=== PATIENT | female | born 1960 ===

== ENCOUNTER 2017-02-16 16:00 | Emergency (ER) | payer MEDICARE ==
[2017-02-16 16:13] VITALS: BP 103/63; PULSE 83; RESP 16; TEMP 98.7; O2SAT 100
--- NOTE | 2017-02-16 17:32 | CT ---
PROCEDURE: CT HEAD WITHOUT CONTRAST. HISTORY: Left sided Headace, acute sinusitis COMPARISON: Comparison is made to the previous study dated 02/15/2015 TECHNIQUE: Axial computed tomography images were obtained through the head/brain without intravenous contrast. Radiation dose: Total exam DLP = 822.46 mGy-cm. This CT exam was performed using one or more of the following dose reduction techniques: Automated exposure control, adjustment of the mA and/or kV according to patient size, and/or use of iterative reconstruction technique. FINDINGS: HEMORRHAGE: No intracranial hemorrhage. BRAIN: No mass effect or edema. No atrophy or chronic microvascular ischemic changes. VENTRICLES: Unremarkable. No hydrocephalus. CALVARIUM: Unremarkable. PARANASAL SINUSES: Partial opacification of the left frontal sinus. Almost complete opacification of the left ethmoid sinuses and mild mucosal thickening of the left maxillary sinus. MASTOID AIR CELLS: Unremarkable as visualized. No inflammatory changes. OTHER FINDINGS: None. IMPRESSION: Partial opacification of the left frontal sinus and almost complete opacification of the left ethmoid sinus suggestive of sinusitis. No evidence of acute intracranial hemorrhage intracranial collection mass effect or midline shift.
--- NOTE | 2017-02-16 17:56 | ED PDOC ---
HPI: Headache Chief Complaint (Provider): Headache History Per: Patient History/Exam Limitations: no limitations Onset/Duration Of Symptoms: Waxing/Waning, Other (2 weeks) Current Symptoms Are (Timing): Still Present Severity: Severe Front/Back Head: 1 - Left frontal area Quality: Dull Additional Complaint(s): Pt. with hx of CKD on Hemodialysis MWF vial left arm fistula presents to emergency room after dialysis was completed today at 2 p.m. Pt. here today complaining of headache. Headache started 2 weeks ago. It is localized to left frontal area described as pressure like. Pt. has tried benadryl, tylenol, and Nasonex without any relief. Associated symptoms include itchy watery eyes greater on the left than right and nasal congestion greater on the left than right. Pt. denies any nasal discharge, fever, chills, trauma, fall or injury. Pt. states this is not the worst headache of her life. Pt. also denies photophobia, neck stiffness, weakness, or changes in visual acuity. On ROS, pt. denies any weakness, chest pain, dyspnea, abdominal pain, joint pain, nausea, vomiting, or diarrhea. <Rafael Ni - Last Filed: 02/16/17 18:18> <Wilver Cummings - Last Filed: 02/16/17 19:14> Time Seen by Provider: 02/16/17 16:19 Chief Complaint (Nursing): Headache Supervising Attending Note - Supervising Attending Note The Documented history was done by the: Physician Replacer, Attending Physician The documented physical exam was done by the: Physician Replacer, Attending Physician The documented procedures were done by the: Physician Replacer, Attending Physician - Attestation: I have personally seen and examined this patient.: Yes I have fully participated in the care of the patient.: Yes I have reviewed all pertinent clinical information: Yes <Wilver Cummings - Last Filed: 02/16/17 19:14> Past Medical History Vital Signs: Last Vital Signs Temp 98.7 F 02/16/17 16:11 Pulse 83 02/16/17 16:11 Resp 16 02/16/17 16:11 BP 103/63 02/16/17 16:11 Pulse Ox 100 02/16/17 16:11 - Medical History PMH: HTN, Hypothyroidism, End Stage Renal Disease (dialysis M-W-F), Chronic Kidney Disease Denies: HIV, Kidney Stones - Family History Family History: States: Unknown Family Hx - Social History Current smoker - smoking cessation education provided: No Alcohol: None Drugs: Denies <Rafael Ni - Last Filed: 02/16/17 18:18> Vital Signs: Last Vital Signs Temp 98.7 F 02/16/17 16:11 Pulse 83 02/16/17 16:11 Resp 16 02/16/17 16:11 BP 103/63 02/16/17 16:11 Pulse Ox 100 02/16/17 18:18 <Wilver Cummings - Last Filed: 02/16/17 19:14> - Home Medications Home Medications: Ambulatory Orders Medication Instructions Recorded Amoxicillin/Clavulanate Pota 1 tab PO BID 02/14/15 [Augmentin 875 mg-125 mg] Carvedilol [Coreg] 12.5 mg PO BID 02/14/15 Cinacalcet Hydrochloride [Sensipar] 90 mg PO HS 02/14/15 Omeprazole [Omeprazole] 20 mg PO DAILY 02/14/15 Sevelamer Carbonate [Renvela] 2,400 mg PO TID 02/14/15 Sucroferric Oxyhydroxide [Velphoro] 500 mg PO BID 02/14/15 valACYclovir [Valtrex] 500 mg PO MOTHSA 02/14/15 Sevelamer [Renagel] 2,400 mg PO TID #0 tab 02/16/15 Vitamin B Complex/Vit C/Folic 1 tab PO DAILY #0 tab 02/16/15 [Nephro-Jeannine] Amoxicillin/Clavulanate [Augmentin 1 tab PO Q12 #14 tab 02/16/17 875 MG-125 MG] Ibuprofen [Motrin] 400 mg PO Q6 PRN #20 tab 02/16/17 Pseudoephedrine HCl [Sudafed] 30 mg PO Q12 PRN #20 tablet 02/16/17 - Allergies Allergies/Adverse Reactions: Allergies Allergy/AdvReac Type Severity Reaction Status Date / Time iodine Allergy SWELLING Verified 01/08/16 19:59 Review of Systems Neurological: Positive for: Headache (See HPI) <Rafael Ni - Last Filed: 02/16/17 18:18> Physical Exam - Reviewed Vital Signs Reviewed: Yes - Physical Exam Appears: Positive for: Non-toxic, No Acute Distress Head Exam: Positive for: ATRAUMATIC, NORMOCEPHALIC (+ Tenderness palpation of Left frontal sinus) ENT: Positive for: Normal ENT Inspection, Nasal Congestion (+ Left nare turbinat grossly enlarge and obstructing patency of left nare). Negative for: Tonsillar Swelling Neck: Positive for: Painless ROM, Supple Cardiovascular/Chest: Positive for: Regular Rate, Rhythm, Murmur (Systolic Murmur aortic area) Respiratory: Positive for: Normal Breath Sounds. Negative for: Wheezing, Respiratory Distress Pulses-Dorsalis Pedis (L): 2+ Pulses-Dorsalis Pedis (R): 2+ Gastrointestinal/Abdominal: Positive for: Soft. Negative for: Tenderness Extremity: Negative for: Pedal Edema Neurologic/Psych: Positive for: Other (Strength +5/5 bilateral upper extremities ) <Rafael Ni - Last Filed: 02/16/17 18:18> - ECG O2 Sat by Pulse Oximetry: 100 - Progress ED Course And Treament: Motrin 400mg x [address] Head w/o contrast Re-evaluation Time: 17:35 Condition: Improving,but remains with symptoms <Rafael Ni - Last Filed: 02/16/17 18:18> Medical Decision Making Medical Decision Makin y.o. female with sub-acute headache for 2 weeks with history, physica, and CT head consistent with findings of Sinusitis. Pt. to be discharged with augmentin, sudafed, and Ibuprofen. PROCEDURE: CT HEAD WITHOUT CONTRAST. HISTORY: Left sided Headace, acute sinusitis COMPARISON: Comparison is made to the previous study dated 02/15/2015 TECHNIQUE: Axial computed tomography images were obtained through the head/brain without intravenous contrast. Radiation dose: Total exam DLP = 822.46 mGy-cm. This CT exam was performed using one or more of the following dose reduction techniques: Automated exposure control, adjustment of the mA and/or kV according to patient size, and/or use of iterative reconstruction technique. FINDINGS: HEMORRHAGE: No intracranial hemorrhage. BRAIN: No mass effect or edema. No atrophy or chronic microvascular ischemic changes. VENTRICLES: Unremarkable. No hydrocephalus. CALVARIUM: Unremarkable. PARANASAL SINUSES: Partial opacification of the left frontal sinus. Almost complete opacification of the left ethmoid sinuses and mild mucosal thickening of the left maxillary sinus. MASTOID AIR CELLS: Unremarkable as visualized. No inflammatory changes. OTHER FINDINGS: None. IMPRESSION: Partial opacification of the left frontal sinus and almost complete opacification of the left ethmoid sinus suggestive of sinusitis. No evidence of acute intracranial hemorrhage intracranial collection mass effect or midline shift. <Rafael Ni - Last Filed: 02/16/17 18:18> Disposition - Patient ED Disposition Is Patient to be Admitted: No Discussed With : Wilver Cummings - Disposition Disposition: Routine/Home Disposition Time: 18:10 <Rafael Ni - Last Filed: 02/16/17 18:18> <Wilver Cummings - Last Filed: 02/16/17 19:14> - Clinical Impression Clinical Impression: Acute sinusitis, Headache - Disposition Referrals: formerly [facility] [Outside] Condition: FAIR Additional Instructions: Pt. given E.R. precautions to return if symptoms worsen or do not improve. Pt. has an appointment with PMD at [facility] on 02/22/17. Prescriptions: Amoxicillin/Clavulanate [Augmentin 875 MG-125 MG] 1 tab PO Q12 #14 tab Ibuprofen [Motrin] 400 mg PO Q6 PRN #20 tab PRN Reason: Pain, Moderate (4-7) Pseudoephedrine HCl [Sudafed] 30 mg PO Q12 PRN #20 tablet PRN Reason: Cough And Congestion Forms: [employer] ([employer]) Print Language: KINYARWANDA
== END 2017-02-16 19:27 | disposition home or self-care (01) ==
LOC: H.ER 16:00
DX: J01.90 Acute sinusitis, unspecified (principal)

== ENCOUNTER 2018-05-10 14:25 | Emergency (ER) | payer MEDICARE, BC ==
[2018-05-10 14:25] VITALS: BMI 28.3
[2018-05-10 15:09] VITALS: TEMP 97.8
--- NOTE | 2018-05-10 16:48 | CT ---
Date of service: 05/10/2018 PROCEDURE: CT HEAD WITHOUT CONTRAST. HISTORY: Weakness, headache and dizziness. COMPARISON: 02/16/2017. TECHNIQUE: Axial computed tomography images were obtained through the head/brain without intravenous contrast. Coronal and sagittal reconstructed images. Radiation dose: Total exam DLP = 755.22 mGy-cm. This CT exam was performed using one or more of the following dose reduction techniques: Automated exposure control, adjustment of the mA and/or kV according to patient size, and/or use of iterative reconstruction technique. FINDINGS: HEMORRHAGE: No intracranial hemorrhage. BRAIN: No mass effect or edema. No atrophy or chronic microvascular ischemic changes. VENTRICLES: Unremarkable. No hydrocephalus. CALVARIUM: Unremarkable. PARANASAL SINUSES: Unremarkable as visualized. No significant inflammatory changes. Previously identified sinusitis has resolved. MASTOID AIR CELLS: Unremarkable as visualized. No inflammatory changes. OTHER FINDINGS: None. IMPRESSION: No acute intracranial abnormalities. No significant findings to account for the clinical presentation. No significant interval change compared to the prior examination(s).
[2018-05-10 17:01] LABS: BASO # 0.1 K/uL (0.0-0.2); BASO % 0.6 % (0.0-2.0); EOS # 0.1 K/uL (0.0-0.7); EOS % 0.6 % (0.0-4.0); HEMOGLOBIN 11.6 g/dL (12.0-16.0); LYMPH # 0.5 K/uL (1.0-4.3); LYMPH % 4.8 % (20.0-40.0); MEAN CORPUSCULAR HEMOGLOBIN 32.6 pg (27.0-31.0); MEAN CORPUSCULAR HGB CONC 33.2 g/dL (33.0-37.0); MEAN PLATELET VOLUME 8.2 fl (7.2-11.7); MONO # 0.7 K/uL (0.0-0.8); MONO % 7.2 % (0.0-10.0); NEUT # 8.7 K/uL (1.8-7.0); NEUT % 86.8 % (50.0-75.0); PLATELET COUNT 170 K/uL (130-400); RBC 3.57 Mil/uL (3.80-5.20); RED CELL DISTRIBUTION WIDTH 14.4 % (11.5-14.5)
--- NOTE | 2018-05-10 17:25 | ED PDOC ---
HPI: General Adult Time Seen by Provider: 05/10/18 15:36 Chief Complaint (Nursing): Abdominal Pain Chief Complaint (Provider): Dizziness History Per: Patient History/Exam Limitations: no limitations Onset/Duration Of Symptoms: Hrs Current Symptoms Are (Timing): Still Present Additional Complaint(s): 41yo female, history of hypertension, ESRD currently on HD on MWF, gastritis, chronic pain, CAD, comes to ER for evaluation of dizziness. Patient states she went to dialysis today, completed er session and while walking back home, reports it was very hot outside and she felt dizzy, described as a spinning sensation. She reports associated nausea but states her symptoms have returned on arrival to the ER. Patient denies any headache, vomiting, chest pain, shortness of breath or fevers. She denies any weakness or numbness as well. PMD: [facility] Past Medical History Reviewed: Historical Data, Nursing Documentation, Vital Signs Vital Signs: Last Vital Signs Temp 97.8 F 05/10/18 15:07 Pulse 82 05/10/18 19:03 Resp 14 05/10/18 18:00 BP 126/77 05/10/18 19:03 Pulse Ox 99 05/10/18 19:03 - Medical History PMH: Anxiety, Arthritis, Back Problems, Depression, Fibromyalgia, HTN, Hypothyroidism, End Stage Renal Disease (HD for 12 years), Chronic Kidney Disease, Rheumatoid Arthritis Denies: HIV, Kidney Stones - Surgical History Other surgeries: shunt in upper arm - Family History Family History: States: Unknown Family Hx - Immunization History Hx Tetanus Toxoid Vaccination: No Hx Influenza Vaccination: No Hx Pneumococcal Vaccination: No - Home Medications Home Medications: Ambulatory Orders Medication Instructions Recorded Carvedilol [Coreg] 25 mg PO DAILY 11/11/14 Cinacalcet Hydrochloride [Sensipar] 90 mg PO DAILY 11/11/14 Cyclobenzaprine HCl [Flexeril] 1 tab PO TID PRN #25 tab 11/11/14 Omeprazole 40 mg PO DAILY 11/11/14 Sevelamer Carbonate [Renvela] 800 mg PO BID 11/11/14 Tramadol HCl/Acetaminophen 1 tab PO Q4 #14 tab 11/11/14 [Ultracet Tablet] Amoxicillin/Clavulanate Pota 1 tab PO BID 02/14/15 [Augmentin 875 mg-125 mg] Carvedilol [Coreg] 12.5 mg PO BID 02/14/15 Cinacalcet Hydrochloride [Sensipar] 90 mg PO HS 02/14/15 Omeprazole [Omeprazole] 20 mg PO DAILY 02/14/15 Sevelamer Carbonate [Renvela] 2,400 mg PO TID 02/14/15 Sucroferric Oxyhydroxide [Velphoro] 500 mg PO BID 02/14/15 valACYclovir [Valtrex] 500 mg PO MOTHSA 02/14/15 Sevelamer [Renagel] 2,400 mg PO TID #0 tab 02/16/15 Vitamin B Complex/Vit C/Folic 1 tab PO DAILY #0 tab 02/16/15 [Nephro-Jeannine] Aspirin [Ecotrin] 81 mg PO DAILY #0 tabec 01/10/16 Cinacalcet [Sensipar] 90 mg PO DAILY #0 tab 01/10/16 Cyclobenzaprine [Flexeril] 10 mg PO DAILY #0 tab 01/10/16 Sevelamer Carbonate [Renvela] 800 mg PO TIDCC #0 tab 01/10/16 traMADol [Ultram] 25 mg PO Q8H PRN #0 tab 01/10/16 Amoxicillin/Clavulanate [Augmentin 1 tab PO Q12 #14 tab 02/16/17 875 MG-125 MG] Ibuprofen [Motrin] 400 mg PO Q6 PRN #20 tab 02/16/17 Pseudoephedrine HCl [Sudafed] 30 mg PO Q12 PRN #20 tablet 02/16/17 Meclizine [Meclizine*] 25 mg PO Q6 #30 tab 05/10/18 - Allergies Allergies/Adverse Reactions: Allergies Allergy/AdvReac Type Severity Reaction Status Date / Time iodine Allergy SWELLING Verified 05/10/18 15:07 Review of Systems ROS Statement: Except As Marked, All Systems Reviewed And Found Negative Constitutional: Negative for: Fever, Chills Cardiovascular: Negative for: Chest Pain Respiratory: Negative for: Shortness of Breath Gastrointestinal: Positive for: Nausea. Negative for: Vomiting Neurological: Positive for: Dizziness. Negative for: Weakness, Numbness, Headache Physical Exam - Reviewed Nursing Documentation Reviewed: Yes Vital Signs Reviewed: Yes - Physical Exam Appears: Positive for: Non-toxic, No Acute Distress Head Exam: Positive for: ATRAUMATIC, NORMAL INSPECTION, NORMOCEPHALIC Skin: Positive for: Normal Color, Warm Eye Exam: Positive for: Normal appearance, EOMI Neck: Positive for: Normal, Supple Cardiovascular/Chest: Positive for: Regular Rate, Rhythm Respiratory: Positive for: Normal Breath Sounds Pulses-Radial (L): 2+ Pulses-Radial (R): 2+ Gastrointestinal/Abdominal: Positive for: Soft. Negative for: Tenderness Back: Positive for: Normal Inspection Extremity: Positive for: Normal ROM, Other (left upper arm with shunt in place; no surrounding erythema, swelling or discharge). Negative for: Tenderness Neurologic/Psych: Positive for: Alert, Oriented, Gait (steady). Negative for: Motor/Sensory Deficits - Laboratory Results Result Diagrams: 05/10/18 16:42 05/10/18 16:42 - ECG O2 Sat by Pulse Oximetry: 98 (RA) Pulse Ox Interpretation: Normal - Progress Re-evaluation Time: 18:43 Condition: Re-examined, Improved Medical Decision Making Medical Decision Making: Impression: Dizziness Differential: Peripheral vertigo, BVP v. vasovagal; central vertigo less likely due to normal neuro exam; posterior cerebellar circulation deficits Plan: --Labs --CT Head w/o contrast --Toradol 30mg IVP --Reglan 10mg IVP --Morphine 4mg IVP --Ativan 1mg IVP --Zofran 4mg IVP Time: 1645 PROCEDURE: CT HEAD WITHOUT CONTRAST. HISTORY: Weakness, headache and dizziness. COMPARISON: 02/16/2017. TECHNIQUE: Axial computed tomography images were obtained through the head/brain without intravenous contrast. Coronal and sagittal reconstructed images. Radiation dose: Total exam DLP = 755.22 mGy-cm. This CT exam was performed using one or more of the following dose reduction techniques: Automated exposure control, adjustment of the mA and/or kV according to patient size, and/or use of iterative reconstruction technique. FINDINGS: HEMORRHAGE: No intracranial hemorrhage. BRAIN: No mass effect or edema. No atrophy or chronic microvascular ischemic changes. VENTRICLES: Unremarkable. No hydrocephalus. CALVARIUM: Unremarkable. PARANASAL SINUSES: Unremarkable as visualized. No significant inflammatory changes. Previously identified sinusitis has resolved. MASTOID AIR CELLS: Unremarkable as visualized. No inflammatory changes. OTHER FINDINGS: None. IMPRESSION: No acute intracranial abnormalities. No significant findings to account for the clinical presentation. No significant interval change compared to the prior examination(s). Scribe Attestation: Documented by Zulma Cartagena and Mode Denny, acting as scribes for Wilver Cummings MD. Provider Scribe Attestation: All medical record entries made by the Scribe were at my direction and personally dictated by me. I have reviewed the chart and agree that the record accurately reflects my personal performance of the history, physical exam, medical decision making, and the department course for this patient. I have also personally directed, reviewed, and agree with the discharge instructions and disposition. Disposition - Clinical Impression Clinical Impression: Dizziness - Patient ED Disposition Is Patient to be Admitted: No Doctor Will See Patient In The: Office Counseled Patient/Family Regarding: Studies Performed, Diagnosis, Need For Followup - Disposition Referrals: [facility] [Outside] Disposition: Routine/Home Disposition Time: 18:45 Condition: GOOD Additional Instructions: DEEPTI JIMENEZ, thank you for letting us take care of you today. Your provider was Wilver Cummings MD and you were treated for WEAKNESS HEADACHE. The emergency medical care you received today was directed at your acute symptoms. If you were prescribed any medication, please fill it and take as directed. It may take several days for your symptoms to resolve. Return to the Emergency Department if your symptoms worsen, do not improve, or if you have any other problems. Please contact your doctor or call one of the physicians/clinics you have been referred to that are listed on the Patient Visit Information form that is included in your discharge packet. Bring any paperwork you were given at discharge with you along with any medications you are taking to your follow up visit. Our treatment cannot replace ongoing medical care by a primary care provider outside of the emergency department. Thank you for allowing the [id number] team to be part of your care today. If you had an X-Ray or CT scan: A Radiologist will review the ED reading if any change in treatment is needed we will contact you. If you had a blood, urine, or wound culture: It will take several days for the results, if any change in treatment is needed we will contact you. If you had an STI test: It will take 48 hours for the results. Please call after 1 week if you have not heard back. Prescriptions: Meclizine [Meclizine*] 25 mg PO Q6 #30 tab Instructions: Vertigo (a Type of Dizziness) Forms: [employer] (Macedonian) Print Language: HONG KONGER
[2018-05-10 17:27] LABS: BANDS 2 % (0-2); BASOPHIL 1 % (0-2); EOSINOPHIL 1 % (0-7); LYMPHOCYTE 6 % (20-50); MONOCYTE 7 % (0-10); NEUTROPHIL 83 % (42-75); TOTAL CELLS COUNTED 100
[2018-05-10 17:28] LABS: ANISOCYTOSIS SLIGHT; PLATELET ESTIMATE NORMAL (NORMAL)
[2018-05-10 17:43] LABS: CALCIUM 10.7 mg/dL (8.4-10.2)
[2018-05-10 18:54] VITALS: RESP 14
[2018-05-10 19:04] VITALS: BP 126/77; PULSE 82
--- NOTE | 2018-05-11 07:41 | CARD ---
APPROVED REPORT Date of service: 05/10/2018 EKG Measurement Heart [id number] <Conclusion> Normal sinus rhythm Normal ECG
[2018-05-12 17:05] VITALS: O2SAT 98
== END 2018-05-10 19:03 | disposition home or self-care (01) ==
LOC: H.ER 14:25
DX: R42 Dizziness and giddiness (principal); E03.9 Hypothyroidism, unspecified; I12.0 Hypertensive chronic kidney disease with stage 5 chronic kidney disease or end stage renal disease; M79.7 Fibromyalgia; N18.6 End stage renal disease; Z99.2 Dependence on renal dialysis; M06.9 Rheumatoid arthritis, unspecified

== ENCOUNTER 2019-02-02 22:30 | Observation (INO) | payer MEDICARE ==
[2019-02-02 22:30] VITALS: BMI 28.3
--- NOTE | 2019-02-02 23:31 | ED PDOC ---
HPI: Abdomen Time Seen by Provider: 02/02/19 22:45 Chief Complaint (Nursing): Abdominal Pain Chief Complaint (Provider): Abdominal Pain History Per: Patient History/Exam Limitations: no limitations Onset/Duration Of Symptoms: Other (this afternoon) Location Of Pain/Discomfort: LUQ Associated Symptoms: Nausea, Vomiting, Diarrhea. denies: Fever, Chest Pain Additional Complaint(s): 58 years old female with history of renal disease, on dialysis Tuesday, Tuesday and Tuesday, presents to ER for evaluation of vomiting and diarrhea onset this afternoon. Patient reports she was on dialysis this afternoon for 3 hours and upon returning home she became nauseous and had 3 episodes of non bloody non bilious vomiting and 3 episodes of non bloody diarrhea. She also complains of left upper abdominal discomfort. Patient denies fever, shortness of breath and chest pain. PMD: [facility] Past Medical History Reviewed: Historical Data, Nursing Documentation, Vital Signs Vital Signs: Last Vital Signs Temp 98.5 F 02/02/19 22:35 Pulse 85 02/02/19 22:35 Resp 18 02/02/19 22:35 BP 131/82 02/02/19 22:35 Pulse Ox 97 02/02/19 22:35 Primary Care Provider: [facility] - Medical History PMH: Anxiety, Arthritis, Back Problems, Depression, Fibromyalgia, HTN, Hypothyroidism, End Stage Renal Disease (HD for 12 years), Chronic Kidney Disease, Rheumatoid Arthritis Denies: HIV, Kidney Stones - Surgical History Other surgeries: AV fistula - Family History Family History: States: Unknown Family Hx - Social History Current smoker - smoking cessation education provided: No Alcohol: None Drugs: Denies - Immunization History Hx Tetanus Toxoid Vaccination: No Hx Influenza Vaccination: No Hx Pneumococcal Vaccination: No - Home Medications Home Medications: Ambulatory Orders Medication Instructions Recorded Carvedilol [Coreg] 25 mg PO DAILY 11/11/14 Cinacalcet Hydrochloride [Sensipar] 90 mg PO DAILY 11/11/14 Cyclobenzaprine HCl [Flexeril] 1 tab PO TID PRN #25 tab 11/11/14 Omeprazole 40 mg PO DAILY 11/11/14 Sevelamer Carbonate [Renvela] 800 mg PO BID 11/11/14 Tramadol HCl/Acetaminophen 1 tab PO Q4 #14 tab 11/11/14 [Ultracet Tablet] Amoxicillin/Clavulanate Pota 1 tab PO BID 02/14/15 [Augmentin 875 mg-125 mg] Carvedilol [Coreg] 12.5 mg PO BID 02/14/15 Cinacalcet Hydrochloride [Sensipar] 90 mg PO HS 02/14/15 Omeprazole 20 mg PO DAILY 02/14/15 Sevelamer Carbonate [Renvela] 2,400 mg PO TID 02/14/15 Sucroferric Oxyhydroxide [Velphoro] 500 mg PO BID 02/14/15 valACYclovir [Valtrex] 500 mg PO MOTHSA 02/14/15 Sevelamer [Renagel] 2,400 mg PO TID #0 tab 02/16/15 Vitamin B Complex/Vit C/Folic 1 tab PO DAILY #0 tab 02/16/15 [Nephro-Jeannine] Aspirin [Ecotrin] 81 mg PO DAILY #0 tabec 01/10/16 Cinacalcet [Sensipar] 90 mg PO DAILY #0 tab 01/10/16 Cyclobenzaprine [Flexeril] 10 mg PO DAILY #0 tab 01/10/16 Sevelamer Carbonate [Renvela] 800 mg PO TIDCC #0 tab 01/10/16 traMADol [Ultram] 25 mg PO Q8H PRN #0 tab 01/10/16 Amoxicillin/Clavulanate [Augmentin 1 tab PO Q12 #14 tab 02/16/17 875 MG-125 MG] Ibuprofen [Motrin] 400 mg PO Q6 PRN #20 tab 02/16/17 Pseudoephedrine HCl [Sudafed] 30 mg PO Q12 PRN #20 tablet 02/16/17 Meclizine [Meclizine*] 25 mg PO Q6 #30 tab 05/10/18 - Allergies Allergies/Adverse Reactions: Allergies Allergy/AdvReac Type Severity Reaction Status Date / Time iodine Allergy SWELLING Verified 05/10/18 15:07 Review of Systems ROS Statement: Except As Marked, All Systems Reviewed And Found Negative Constitutional: Negative for: Fever Cardiovascular: Negative for: Chest Pain Respiratory: Negative for: Shortness of Breath Gastrointestinal: Positive for: Nausea, Vomiting, Abdominal Pain (Left upper), Diarrhea Physical Exam - Reviewed Nursing Documentation Reviewed: Yes Vital Signs Reviewed: Yes - Physical Exam Appears: Positive for: Well, No Acute Distress Head Exam: Positive for: ATRAUMATIC, NORMOCEPHALIC Skin: Positive for: Normal Color, Warm, Dry Eye Exam: Positive for: Normal appearance, EOMI, PERRL Neck: Positive for: Normal, Painless ROM, Supple Cardiovascular/Chest: Positive for: Regular Rate, Rhythm. Negative for: Murmur Respiratory: Positive for: Normal Breath Sounds. Negative for: Wheezing Gastrointestinal/Abdominal: Positive for: Tenderness (mild LUQ) Back: Positive for: Normal Inspection. Negative for: L CVA Tenderness, R CVA Tenderness Extremity: Positive for: Normal ROM. Negative for: Pedal Edema, Swelling Neurological/Psych: Positive for: Awake, Alert, Oriented (x3) - Laboratory Results Result Diagrams: 02/02/19 23:49 02/02/19 23:49 - ECG O2 Sat by Pulse Oximetry: 97 (RA) Pulse Ox Interpretation: Normal Medical Decision Making Medical Decision Making: Time: 2246 Initial impression: 58 y/o female presents with acute vomiting and diarrhea. Initial plan: --EKG --CMP --Lipase --Urine disptick --CBC --PTT --PT --Bentyl 20 mg PO --Zofran 4 mg IV --Urinalysis 0154 Labs reviewed and significant for elevated lipase level. Patient continues to complain of LUQ, epigastric pain. Patient had 2 addition episodes of vomiting. Will admit patient for evolving acute pancreatitis Case referred to Dr. Shah. --------- Scribe Attestation: Documented by Haley Sinha acting as a scribe for Kalyan Velasquez MD. Provider Scribe Attestation: All medical record entries made by the Scribe were at my direction and personally dictated by me. I have reviewed the chart and agree that the record accurately reflects my personal performance of the history, physical exam, medical decision making, and the department course for this patient. I have also personally directed, reviewed, and agree with the discharge instructions and disposition. Disposition - Clinical Impression Clinical Impression: Acute pancreatitis - Patient ED Disposition Is Patient to be Admitted: Yes - Disposition Disposition Time: 01:54 Condition: FAIR Forms: [employer] ([place])
[2019-02-02 23:53] LABS: BASO % 0.7 % (0.0-2.0); EOS % 0.3 % (0.0-4.0); HEMOGLOBIN 13.9 g/dL (12.0-16.0); LYMPH # 0.5 K/uL (1.0-4.3); LYMPH % 8.6 % (20.0-40.0); MEAN CELL VOLUME 96.6 fl (81.0-99.0); MEAN CORPUSCULAR HEMOGLOBIN 32.1 pg (27.0-31.0); MEAN CORPUSCULAR HGB CONC 33.2 g/dL (33.0-37.0); MEAN PLATELET VOLUME 7.9 fl (7.2-11.7); MONO # 0.4 K/uL (0.0-0.8); MONO % 7.4 % (0.0-10.0); NEUT # 4.6 K/uL (1.8-7.0); PLATELET COUNT 144 K/uL (130-400); RBC 4.35 Mil/uL (3.80-5.20); RED CELL DISTRIBUTION WIDTH 14.5 % (11.5-14.5); WHITE BLOOD COUNT 5.5 K/uL (4.8-10.8)
[2019-02-02 23:57] LABS: PROTHROMBIN TIME 11.3 Seconds (9.8-13.1)
[2019-02-02 23:59] LABS: PARTIAL THROMBOPLASTIN TIME 30.1 Seconds (25.6-37.1)
[2019-02-03 00:31] LABS: ALB/GLOB RATIO 1.6 (1.0-2.1); ALBUMIN 4.7 g/dL (3.5-5.0); CALCIUM 8.5 mg/dL (8.4-10.2)
[2019-02-03 01:44] LABS: ANISOCYTOSIS SLIGHT; BANDS 3 % (0-2); LARGE PLATELETS PRESENT; LYMPHOCYTE 8 % (20-50); MONOCYTE 6 % (0-10); NEUTROPHIL 83 % (42-75); PLATELET ESTIMATE NORMAL (NORMAL); TOTAL CELLS COUNTED 100
[2019-02-03 01:45] LABS: HYPOCHROMIC SLIGHT; STOMATOCYTES SLIGHT
[2019-02-03] MEDS ORDERED: Morphine 4 MG/ML VIAL IVP PRN ×2 (02:35→02:37)
[2019-02-03] MEDS ORDERED: Lactated Ringer's 1,000 ML IV SCH ×3 (02:45→10:39)
--- NOTE | 2019-02-03 02:53 | CP.PCM.HP ---
<Isabela Darling - Last Filed: 02/03/19 03:41> History of Present Illness - History of Present Illness History of Present Illness: CC: abdominal pain HPI: 58 YO female with PMHx of HTN (no longer on any PO meds), and ESRD (HD MWF) presents to [facility] ED for abdominal pain. Patient states that she was at her normal state of health this AM, she had HD earlier in the day and around 2PM she suddenly started having severe, 10/10 burning abdominal pain/ Pain was located in the periumbilical area, no radiation of the pain and was associated with nausea, vomiting (x 5 NBNB) and loose BMs (x3, no blood). Her symptoms persisted which brought her to the ED. Denies chest pain, dyspnea, palpitations, urinary symptoms, fevers, chills and sweats. Patient is ambulatory. Of note, patient states that she has similar pain in the past, and was found to have pancreatitis at that time, and it was after she had HD. PMD: Dr. Zev Evans: Dr. Vera PMHx: HTN, ESRD on HD MWF, hx of pancreatitis 2013, hx of SC (per pt) PSHx: AVF 10/2014, SC, metal stent x 2 SHx: denied ETOH, smoking or illicit drug use. Live with FMHx: mother from [place] 85 y/o, sister from [place] 75 y/o; mother, brother with DM Allergies: iodine-rash and itchiness Present on Admission - Present on Admission Any Indicators Present on Admission: No Review of Systems - Constitutional Constitutional: absent: Chills, Fever - Cardiovascular Cardiovascular: absent: Chest Pain, Dyspnea, Palpitations - Respiratory Respiratory: absent: Cough, Dyspnea - Gastrointestinal Gastrointestinal: Abdominal Pain, Nausea, Vomiting - Genitourinary Genitourinary: absent: Dysuria Past Patient History - Infectious Disease Hx of Infectious Diseases: None - Past Medical History & Family History Past Medical History?: Yes - Past Social History Smoking Status: Never Smoked Alcohol: None Drugs: Denies Home Situation {Lives}: With Family - CARDIAC Hx Hypertension: Yes - PULMONARY Hx Respiratory Disorders: No - NEUROLOGICAL Hx Neurological Disorder: No - HEENT Hx HEENT Problems: No - RENAL Hx Chronic Kidney Disease: Yes Hx Kidney Stones: No - ENDOCRINE/METABOLIC Hx Hypothyroidism: Yes - HEMATOLOGICAL/ONCOLOGICAL Hx Human Immunodeficiency Virus (HIV): No - INTEGUMENTARY Hx Dermatological Problems: No - MUSCULOSKELETAL/RHEUMATOLOGICAL Hx Arthritis: Yes Hx Rheumatoid Arthritis: Yes - GASTROINTESTINAL Hx Gastrointestinal Disorders: No - GENITOURINARY/GYNECOLOGICAL Hx Genitourinary Disorders: No - PSYCHIATRIC Hx Anxiety: Yes Hx Depression: Yes - SURGICAL HISTORY Hx Surgeries: Yes Hx Arteriovenous Shunt: Yes Hx Vascular Access Device: Yes (Left AV fistula) - ANESTHESIA Hx Anesthesia: Yes Hx Anesthesia Reactions: No Hx Malignant Hyperthermia: No Meds Allergies/Adverse Reactions: Allergies Allergy/AdvReac Type Severity Reaction Status Date / Time iodine Allergy SWELLING Verified 05/10/18 15:07 Physical Exam - Constitutional Appears: No Acute Distress - Eye Exam Eye Exam: EOMI, Normal appearance - ENT Exam ENT Exam: Mucous Membranes Dry - Respiratory Exam Respiratory Exam: Clear to Auscultation Bilateral, NORMAL BREATHING PATTERN. absent: Wheezes - Cardiovascular Exam Cardiovascular Exam: REGULAR RHYTHM, +S1, +S2 - GI/Abdominal Exam GI & Abdominal Exam: Normal Bowel Sounds, Soft, Tenderness (periumbilical area and LLQ (chronic per pt) ). absent: Distended, Guarding Additional comments: Neg lavinia or turners sign - Extremities Exam Extremities exam: Positive for: normal inspection. Negative for: calf tenderness, pedal edema Additional comments: L arm AV fistula noted, palpable thrill noted - Back Exam Back exam: NORMAL INSPECTION - Neurological Exam Neurological exam: Alert, Oriented x3 - Psychiatric Exam Psychiatric exam: Normal Mood - Skin Skin Exam: Normal Color Results - Vital Signs Recent Vital Signs: Last Vital Signs Temp 98.5 F 02/02/19 22:35 Pulse 71 02/03/19 02:37 Resp 18 02/03/19 02:37 BP 114/72 02/03/19 02:37 Pulse Ox 99 02/03/19 02:37 - Labs Result Diagrams: 02/02/19 23:49 02/02/19 23:49 Labs: Laboratory Results - last 24 hr 02/02/19 02/02/19 02/02/19 23:43 23:49 23:49 WBC 5.5 RBC 4.35 Hgb 13.9 Hct 42.0 MCV 96.6 MCH 32.1 H MCHC 33.2 RDW 14.5 Plt Count 144 MPV 7.9 Neut % (Auto) 83.0 H Lymph % (Auto) 8.6 L [place] % (Auto) 7.4 Eos % (Auto) 0.3 Baso % (Auto) 0.7 Neut # (Auto) 4.6 Lymph # (Auto) 0.5 L [place] # (Auto) 0.4 Eos # (Auto) 0.0 Baso # (Auto) 0.0 Neutrophils % (Manual) 83 H Band Neutrophils % 3 H Lymphocytes % (Manual) 8 L Monocytes % (Manual) 6 Platelet Estimate Normal Large Platelets Present Hypochromasia (manual) Slight Anisocytosis (manual) Slight Stomatocytes Slight PT INR APTT Sodium 134 Potassium 4.5 Chloride 93 L Carbon Dioxide 27 Anion Gap 19 BUN 37 H Creatinine 6.6 H Est GFR ( Amer) 8 Est GFR (Non-Af Amer) 6 POC Glucose (mg/dL) 132 H Random Glucose 119 H Calcium 8.5 Total Bilirubin 0.5 AST 20 ALT 21 Alkaline Phosphatase 215 H Total Protein 7.6 Albumin 4.7 Globulin 2.9 Albumin/Globulin Ratio 1.6 Lipase 959 H 02/02/19 23:49 WBC RBC Hgb Hct MCV MCH MCHC RDW Plt Count MPV Neut % (Auto) Lymph % (Auto) [place] % (Auto) Eos % (Auto) Baso % (Auto) Neut # (Auto) Lymph # (Auto) [place] # (Auto) Eos # (Auto) Baso # (Auto) Neutrophils % (Manual) Band Neutrophils % Lymphocytes % (Manual) Monocytes % (Manual) Platelet Estimate Large Platelets Hypochromasia (manual) Anisocytosis (manual) Stomatocytes PT 11.3 INR 1.0 APTT 30.1 Sodium Potassium Chloride Carbon Dioxide Anion Gap BUN Creatinine Est GFR ( Amer) Est GFR (Non-Af Amer) POC Glucose (mg/dL) Random Glucose Calcium Total Bilirubin AST ALT Alkaline Phosphatase Total Protein Albumin Globulin Albumin/Globulin Ratio Lipase - EKG Data EKG Interpreted by: Myself EKG shows normal: Sinus rhythm Rate: Normal (Normal sinus with a rate of 66, no acute ST or T wave changes) Assessment & Plan - Assessment and Plan (Free Text) Assessment: Assessment/Plan: 58 YO female with PMHx of HTN (no longer on any PO meds), and ESRD (HD MWF), hx of pancreatitis is admitted for acute pancreatitis. Acute pancreatitis -likely 2/2 to HD, elevated lipase -other causes to be r/o, triglycerides wnl -RUQ US pending -c/w IV fluids, NPO, PPI, Zofran as needed -will advance diet as tolerated -pain management ESRD -on HD, -- -Nephrology consulted; follow up recs -hold rebvela and velphoro given NPO for now HTN -controlled -per pt and ecw chart no longer any chronic PO meds per wood type finisher -adjust as needed Hx of SC -pt endorsing stent, no hx noted on ecw notes -followed by wood type finisher -no longer taking on BB or asa per chart and pt -on statin, hold for now given NPO DVT prolx -Heparin SC <Parth Shah - Last Filed: 02/03/19 06:46> Results - Vital Signs Recent Vital Signs: Last Vital Signs Temp 98 F 02/03/19 04:45 Pulse 71 02/03/19 02:37 Resp 18 02/03/19 02:37 BP 114/72 02/03/19 02:37 Pulse Ox 99 02/03/19 02:37 - Labs Result Diagrams: 02/02/19 23:49 02/02/19 23:49 Labs: Laboratory Results - last 24 hr 02/02/19 02/02/19 02/02/19 23:43 23:49 23:49 WBC 5.5 RBC 4.35 Hgb 13.9 Hct 42.0 MCV 96.6 MCH 32.1 H MCHC 33.2 RDW 14.5 Plt Count 144 MPV 7.9 Neut % (Auto) 83.0 H Lymph % (Auto) 8.6 L [place] % (Auto) 7.4 Eos % (Auto) 0.3 Baso % (Auto) 0.7 Neut # (Auto) 4.6 Lymph # (Auto) 0.5 L [place] # (Auto) 0.4 Eos # (Auto) 0.0 Baso # (Auto) 0.0 Neutrophils % (Manual) 83 H Band Neutrophils % 3 H Lymphocytes % (Manual) 8 L Monocytes % (Manual) 6 Platelet Estimate Normal Large Platelets Present Hypochromasia (manual) Slight Anisocytosis (manual) Slight Stomatocytes Slight PT INR APTT Sodium 134 Potassium 4.5 Chloride 93 L Carbon Dioxide 27 Anion Gap 19 BUN 37 H Creatinine 6.6 H Est GFR ( Amer) 8 Est GFR (Non-Af Amer) 6 POC Glucose (mg/dL) 132 H Random Glucose 119 H Calcium 8.5 Total Bilirubin 0.5 AST 20 ALT 21 Alkaline Phosphatase 215 H Total Protein 7.6 Albumin 4.7 Globulin 2.9 Albumin/Globulin Ratio 1.6 Triglycerides Cholesterol LDL Cholesterol Direct HDL Cholesterol Lipase 959 H 02/02/19 02/03/19 23:49 02:42 WBC RBC Hgb Hct MCV MCH MCHC RDW Plt Count MPV Neut % (Auto) Lymph % (Auto) [place] % (Auto) Eos % (Auto) Baso % (Auto) Neut # (Auto) Lymph # (Auto) [place] # (Auto) Eos # (Auto) Baso # (Auto) Neutrophils % (Manual) Band Neutrophils % Lymphocytes % (Manual) Monocytes % (Manual) Platelet Estimate Large Platelets Hypochromasia (manual) Anisocytosis (manual) Stomatocytes PT 11.3 INR 1.0 APTT 30.1 Sodium Potassium Chloride Carbon Dioxide Anion Gap BUN Creatinine Est GFR ( Amer) Est GFR (Non-Af Amer) POC Glucose (mg/dL) Random Glucose Calcium Total Bilirubin AST ALT Alkaline Phosphatase Total Protein Albumin Globulin Albumin/Globulin Ratio Triglycerides 86 D Cholesterol 129 LDL Cholesterol Direct 51 HDL Cholesterol 46 Lipase Attending/Attestation - Attestation I have personally seen and examined this patient.: Yes I have fully participated in the care of the patient.: Yes I have reviewed all pertinent clinical information: Yes Notes (Text): 02/03/19 06:42 I saw, examined and discussed this patient with Dr Darling. I agree with the assessment and plan outlined above. this is a 58 years old female with hx of Pancreatitis, ESRD on Hemodialysis, who was dialysed on 02/02/19 and now comes with abdominal pain with a lipase of 959m g/dl. We will treat for Acute Pancreatitis resting the bowel and administering IV Fluids and pain management until Pain and anorexia ceases to start enteral feeding. Parth Shah MD
[2019-02-03 02:56] LABS: HDL CHOLESTEROL 46 MG/DL (30-70)
[2019-02-03 03:07] LABS: LDL CHOLESTEROL 51 mg/dL (0-129)
[2019-02-03 08:19] VITALS: O2SAT 100
[2019-02-03 08:20] VITALS: RESP 20
[2019-02-03 12:29] VITALS: BP 134/80; PULSE 57; TEMP 97.6
--- NOTE | 2019-02-03 13:43 | CP.PCM.DIS ---
<Grace Ambrocio - Last Filed: 02/03/19 13:49> Provider - Provider Date of Admission: 02/03/19 01:52 Attending physician: Parth Shah Consults: 02/03/19 06:51 Gastroenterology Consult Routine Comment: Consulting Provider: Girish [place] Consulting Physician: Girish [place] Reason for Consult: Pancreatitis 02/03/19 07:00 Nephrology Consult Routine Comment: Consulting Provider: Shelley Vera Consulting Physician: Shelley Vera Reason for Consult: ESRD on HD MWF Time Spent in preparation of Discharge (in minutes): 30 Hospital Course - Lab Results Lab Results: Most Recent Lab Values WBC 5.5 K/uL (4.8-10.8) 02/02/19 23:49 RBC 4.35 Mil/uL (3.80-5.20) 02/02/19 23:49 Hgb 13.9 g/dL (12.0-16.0) 02/02/19 23:49 Hct 42.0 % (34.0-47.0) 02/02/19 23:49 MCV 96.6 fl (81.0-99.0) 02/02/19 23:49 MCH 32.1 pg (27.0-31.0) H 02/02/19 23:49 MCHC 33.2 g/dL (33.0-37.0) 02/02/19 23:49 RDW 14.5 % (11.5-14.5) 02/02/19 23:49 Plt Count 144 K/uL (130-400) 02/02/19 23:49 MPV 7.9 fl (7.2-11.7) 02/02/19 23:49 Neut % (Auto) 83.0 % (50.0-75.0) H 02/02/19 23:49 Lymph % (Auto) 8.6 % (20.0-40.0) L 02/02/19 23:49 [place] % (Auto) 7.4 % (0.0-10.0) 02/02/19 23:49 Eos % (Auto) 0.3 % (0.0-4.0) 02/02/19 23:49 Baso % (Auto) 0.7 % (0.0-2.0) 02/02/19 23:49 Neut # (Auto) 4.6 K/uL (1.8-7.0) 02/02/19 23:49 Lymph # (Auto) 0.5 K/uL (1.0-4.3) L 02/02/19 23:49 [place] # (Auto) 0.4 K/uL (0.0-0.8) 02/02/19 23:49 Eos # (Auto) 0.0 K/uL (0.0-0.7) 02/02/19 23:49 Baso # (Auto) 0.0 K/uL (0.0-0.2) 02/02/19 23:49 Neutrophils % (Manual) 83 % (42-75) H 02/02/19 23:49 Band Neutrophils % 3 % (0-2) H 02/02/19 23:49 Lymphocytes % (Manual) 8 % (20-50) L 02/02/19 23:49 Monocytes % (Manual) 6 % (0-10) 02/02/19 23:49 Platelet Estimate Normal (NORMAL) 02/02/19 23:49 Large Platelets Present 02/02/19 23:49 Hypochromasia (manual) Slight 02/02/19 23:49 Anisocytosis (manual) Slight 02/02/19 23:49 Stomatocytes Slight 02/02/19 23:49 PT 11.3 Seconds (9.8-13.1) 02/02/19 23:49 INR 1.0 02/02/19 23:49 APTT 30.1 Seconds (25.6-37.1) 02/02/19 23:49 Sodium 134 mmol/l (132-148) 02/02/19 23:49 Potassium 4.5 MMOL/L (3.6-5.0) 02/02/19 23:49 Chloride 93 mmol/L (98-107) L 02/02/19 23:49 Carbon Dioxide 27 mmol/L (22-30) 02/02/19 23:49 Anion Gap 19 (10-20) 02/02/19 23:49 BUN 37 mg/dl (7-17) H 02/02/19 23:49 Creatinine 6.6 mg/dl (0.7-1.2) H 02/02/19 23:49 Est GFR ( Amer) 8 02/02/19 23:49 Est GFR (Non-Af Amer) 6 02/02/19 23:49 POC Glucose (mg/dL) 132 mg/dL (65-110) H 02/02/19 23:43 Random Glucose 119 mg/dL (65-105) H 02/02/19 23:49 Calcium 8.5 mg/dL (8.4-10.2) 02/02/19 23:49 Total Bilirubin 0.5 mg/dl (0.2-1.3) 02/02/19 23:49 AST 20 U/L (14-36) 02/02/19 23:49 ALT 21 U/L (9-52) 02/02/19 23:49 Alkaline Phosphatase 215 U/L (38-126) H 02/02/19 23:49 Total Protein 7.6 G/DL (6.3-8.2) 02/02/19 23:49 Albumin 4.7 g/dL (3.5-5.0) 02/02/19 23:49 Globulin 2.9 gm/dL (2.2-3.9) 02/02/19 23:49 Albumin/Globulin Ratio 1.6 (1.0-2.1) 02/02/19 23:49 Triglycerides 86 mg/DL (0-149) D 02/03/19 02:42 Cholesterol 129 mg/dL (0-199) 02/03/19 02:42 LDL Cholesterol Direct 51 mg/dL (0-129) 02/03/19 02:42 HDL Cholesterol 46 MG/DL (30-70) 02/03/19 02:42 Lipase 959 U/L (23-300) H 02/02/19 23:49 - Hospital Course Hospital Course: A/P: 58 y/o F with PMHx of HTN, and ESRD (HD MWF), hx of pancreatitis (2013) admitted for acute pancreatitis. Patient was seen and examined this morning sitting upright in bed. Patient reports pain has improved. She denied any fever, chills, nausea or vomitting. Abdomen was soft, nontender, no rigidity, no guarding, no rebound tenderness 1. Acute pancreatitis (resolving) 2. ESRD (chronic) -Sevelamer 800 mg PO TID -Sucroferric 500mg PO BID -Cincalcet 90mg PO QD -on HD, M-W-F 3. HTN (chronic, controlled) -amlodipine 5 mg PO QD 4. Hx of SC -lipitor 20mg QD Discharge Exam - Head Exam Head Exam: ATRAUMATIC, NORMOCEPHALIC - Eye Exam Pupil Exam: PERRL - ENT Exam ENT Exam: Mucous Membranes Moist - Respiratory Exam Respiratory Exam: NORMAL BREATHING PATTERN - Cardiovascular Exam Cardiovascular Exam: REGULAR RHYTHM, +S1, +S2 - GI/Abdominal Exam GI & Abdominal Exam: Soft. absent: Guarding, Rebound, Rigid, Tenderness - Extremities Exam Extremities exam: normal inspection - Neurological Exam Neurological exam: Alert, Oriented x3 - Psychiatric Exam Psychiatric exam: Normal Mood - Skin Skin Exam: Dry, Intact Discharge Plan - Discharge Medications Prescriptions: amLODIPine [Norvasc] 5 mg PO DAILY #30 tab Sevelamer [Renagel] 800 mg PO TID 30 Days #90 tab Sevelamer Carbonate [Renvela] 800 mg PO TID 30 Days #90 tab - Follow Up Plan Condition: FAIR Disposition: HOME/ ROUTINE Instructions: Pancreatitis, Pancreatitis (DC) Additional Instructions: Follow up with primary doctor in 1 week. <Rupa Huggins - Last Filed: 02/03/19 16:45> Provider - Provider Date of Admission: 02/03/19 01:52 Attending physician: Parth Shah [facility] Course - Lab Results Lab Results: Most Recent Lab Values WBC 5.5 K/uL (4.8-10.8) 02/02/19 23:49 RBC 4.35 Mil/uL (3.80-5.20) 02/02/19 23:49 Hgb 13.9 g/dL (12.0-16.0) 02/02/19 23:49 Hct 42.0 % (34.0-47.0) 02/02/19 23:49 MCV 96.6 fl (81.0-99.0) 02/02/19 23:49 MCH 32.1 pg (27.0-31.0) H 02/02/19 23:49 MCHC 33.2 g/dL (33.0-37.0) 02/02/19 23:49 RDW 14.5 % (11.5-14.5) 02/02/19 23:49 Plt Count 144 K/uL (130-400) 02/02/19 23:49 MPV 7.9 fl (7.2-11.7) 02/02/19 23:49 Neut % (Auto) 83.0 % (50.0-75.0) H 02/02/19 23:49 Lymph % (Auto) 8.6 % (20.0-40.0) L 02/02/19 23:49 [place] % (Auto) 7.4 % (0.0-10.0) 02/02/19 23:49 Eos % (Auto) 0.3 % (0.0-4.0) 02/02/19 23:49 Baso % (Auto) 0.7 % (0.0-2.0) 02/02/19 23:49 Neut # (Auto) 4.6 K/uL (1.8-7.0) 02/02/19 23:49 Lymph # (Auto) 0.5 K/uL (1.0-4.3) L 02/02/19 23:49 [place] # (Auto) 0.4 K/uL (0.0-0.8) 02/02/19 23:49 Eos # (Auto) 0.0 K/uL (0.0-0.7) 02/02/19 23:49 Baso # (Auto) 0.0 K/uL (0.0-0.2) 02/02/19 23:49 Neutrophils % (Manual) 83 % (42-75) H 02/02/19 23:49 Band Neutrophils % 3 % (0-2) H 02/02/19 23:49 Lymphocytes % (Manual) 8 % (20-50) L 02/02/19 23:49 Monocytes % (Manual) 6 % (0-10) 02/02/19 23:49 Platelet Estimate Normal (NORMAL) 02/02/19 23:49 Large Platelets Present 02/02/19 23:49 Hypochromasia (manual) Slight 02/02/19 23:49 Anisocytosis (manual) Slight 02/02/19 23:49 Stomatocytes Slight 02/02/19 23:49 PT 11.3 Seconds (9.8-13.1) 02/02/19 23:49 INR 1.0 02/02/19 23:49 APTT 30.1 Seconds (25.6-37.1) 02/02/19 23:49 Sodium 134 mmol/l (132-148) 02/02/19 23:49 Potassium 4.5 MMOL/L (3.6-5.0) 02/02/19 23:49 Chloride 93 mmol/L (98-107) L 02/02/19 23:49 Carbon Dioxide 27 mmol/L (22-30) 02/02/19 23:49 Anion Gap 19 (10-20) 02/02/19 23:49 BUN 37 mg/dl (7-17) H 02/02/19 23:49 Creatinine 6.6 mg/dl (0.7-1.2) H 02/02/19 23:49 Est GFR ( Amer) 8 02/02/19 23:49 Est GFR (Non-Af Amer) 6 02/02/19 23:49 POC Glucose (mg/dL) 132 mg/dL (65-110) H 02/02/19 23:43 Random Glucose 119 mg/dL (65-105) H 02/02/19 23:49 Calcium 8.5 mg/dL (8.4-10.2) 02/02/19 23:49 Total Bilirubin 0.5 mg/dl (0.2-1.3) 02/02/19 23:49 AST 20 U/L (14-36) 02/02/19 23:49 ALT 21 U/L (9-52) 02/02/19 23:49 Alkaline Phosphatase 215 U/L (38-126) H 02/02/19 23:49 Total Protein 7.6 G/DL (6.3-8.2) 02/02/19 23:49 Albumin 4.7 g/dL (3.5-5.0) 02/02/19 23:49 Globulin 2.9 gm/dL (2.2-3.9) 02/02/19 23:49 Albumin/Globulin Ratio 1.6 (1.0-2.1) 02/02/19 23:49 Triglycerides 86 mg/DL (0-149) D 02/03/19 02:42 Cholesterol 129 mg/dL (0-199) 02/03/19 02:42 LDL Cholesterol Direct 51 mg/dL (0-129) 02/03/19 02:42 HDL Cholesterol 46 MG/DL (30-70) 02/03/19 02:42 Amylase 232 U/L (30-110) H 02/03/19 13:30 Lipase 789 U/L (23-300) H 02/03/19 13:30 Attending/Attestation - Attestation I have personally seen and examined this patient.: Yes I have fully participated in the care of the patient.: Yes I have reviewed all pertinent clinical information, including history, physical exam and plan: Yes Notes (Text): Abdominal Pain resolved, unclear with due to Pancreatitis Elevated Lipase level , prob Pancreatitis ESRD on HD HTN Pt came in with abd pain Lipase level sl elevated Pt was kept NPO, her abd pain resolved Diet slwoly upgraded and pt tolerateed PO diet and her abd pain resolved Abd Sonogram - Renal cyst , no abn in Pancreas nor GB Pt wants to go home and refused any further work p as she is very much improved d/c pt home Cont TIW HD ff up with Dr danny farias for further work up
[2019-02-03 14:17] LABS: AMYLASE 232 U/L (30-110); LIPASE 789 U/L (23-300)
--- NOTE | 2019-02-03 15:02 | US ---
Date of service: 02/03/2019 HISTORY: RUQ for acute pancreatitis COMPARISON: None. TECHNIQUE: Sonographic evaluation of the right upper quadrant of the abdomen. FINDINGS: LIVER: Measures cm in length. Normal echogenicity of the liver parenchyma. No mass. No intrahepatic bile duct dilatation. GALLBLADDER: Unremarkable. No gallstones. COMMON BILE DUCT: Measures mm. No stones. No dilatation. PANCREAS: Unremarkable as visualized. No mass. No ductal dilatation. RIGHT KIDNEY: Small echogenic right kidney with multiple cysts. Largest cyst measures 1.5 centimeters. AORTA: No aneurysmal dilatation. IVC: Unremarkable. OTHER FINDINGS: None . IMPRESSION: Small echogenic right kidney with multiple cysts. Largest cyst measures 1.5 centimeters.
--- NOTE | 2019-02-03 19:13 | CARD ---
APPROVED REPORT Date of service: 02/03/2019 EKG Measurement Heart [id number] <Conclusion> Normal sinus rhythm Normal ECG
--- NOTE | 2019-02-04 05:04 | DS ---
REFERRING PHYSICIAN: Dr. Shah. CHIEF COMPLAINT: This is a very pleasant 58-year-old woman, who has a known history of end-stage renal disease, on hemodialysis three times a week for the last 13 years, who after hemodialysis yesterday developed sudden inset of severe left upper quadrant and epigastric pain and discomfort associated with a bout of nausea, vomiting, and diarrhea, prompting her to come to the emergency room where she was found to have an elevated lipase and she is referred for GI evaluation. At the time of my evaluation this morning, she is lying comfortably in bed. Denies any nausea, vomiting or any diarrhea and she says that her abdominal pain has been alleviated significantly. However, she has received pain medicine. Last dose was given last night. ALLERGIES: SHE HAS AN ALLERGY TO IODINE. MEDICATIONS: She is on multiple medications here in the hospital. She is on subcutaneous heparin. She received IV fluids. She is on Lipitor, which was held actually last night. She was getting morphine p.r.n. She was getting IV Protonix. Her Renvela was being held. Her Velphoro was being held. She has p.r.n. Tylenol and p.r.n. ondansetron. PAST MEDICAL HISTORY: Significant for hyperlipidemia, hypertension, and end-stage renal disease. PAST SURGICAL HISTORY: She had a hysterectomy as well as the AV grafts on the left upper extremity. FAMILY HISTORY: Noncontributory. SOCIAL HISTORY: She denies alcohol, tobacco, or drug use. PHYSICAL EXAMINATION: GENERAL: A well-developed and well-nourished, but chronically ill-appearing woman, awake, alert, and oriented x3, in no acute distress. VITAL SIGNS: Stable. She is afebrile. ABDOMEN: Soft with good bowel sounds. There is minimal tenderness in the left upper quadrant epigastric area. No palpable masses or lesions. LABORATORY DATA: Her CBC last night was unremarkable. INR was normal. SMA-7 is remarkable for BUN and creatinine of 37.and 6.6. Her LFTs are essentially normal except for the alkaline phosphatase of 215 and her lipase was 959. Triglyceride level was normal at 86. Abdominal ultrasound is re-done and it is pending. IMPRESSION AND PLAN: This is a 58-year-old woman with acute onset of pancreatitis of unclear etiology, although she said she had a bout similar to this five years or so ago. At this point in time, we will wait for the ultrasound results to see if she has any gallstone disease, although her LFTs are normal. She may have some gallstones that might have provoked as if she has passed the stone. Other possibilities include medications perhaps related to her dialysis yesterday. Be that as it may, she clinically is quite stable. I discontinued the IV Protonix and put her on Protonix 40 mg p.o. daily instead. She is already on clear liquids, which I would continue and repeat amylase and lipase stat to see if that is improved. If the lipase has improved dramatically, perhaps we can advance her diet later today as well. I will follow along with you. Braden Bennett MD
[2019-02-04] MEDS ORDERED: Pantoprazole 40 mg EC Tab PO SCH (09:00)
== END 2019-02-03 15:00 | disposition home or self-care (01) ==
LOC: H.ER 22:30 → INTOOBSV 02-03 01:52 → H.ERHOLD 02-03 01:52 → H.TEL 02-03 05:32
PROVIDERS: ADMIT Internal Medicine; ATTEND Internal Medicine
DX: K85.90 Acute pancreatitis without necrosis or infection, unspecified (principal); M06.9 Rheumatoid arthritis, unspecified; M79.7 Fibromyalgia; N18.6 End stage renal disease; Z79.82 Long term (current) use of aspirin; Z79.899 Other long term (current) drug therapy; Z82.49 Family history of ischemic heart disease and other diseases of the circulatory system; Z83.3 Family history of diabetes mellitus; Z99.2 Dependence on renal dialysis; F32.9 Major depressive disorder, single episode, unspecified; F41.9 Anxiety disorder, unspecified; M19.90 Unspecified osteoarthritis, unspecified site; R74.8 Abnormal levels of other serum enzymes; E03.9 Hypothyroidism, unspecified; E78.5 Hyperlipidemia, unspecified; I12.0 Hypertensive chronic kidney disease with stage 5 chronic kidney disease or end stage renal disease; I25.2 Old myocardial infarction; Z91.041 Radiographic dye allergy status
CPT/HCPCS: 36415; 76705; 80053; 80061; 82150; 82948; 83690; 85025; 85610; 85730; 93005; 96374; 99283; G0378; J2270; J2405; J7120